=== PATIENT | male | born 1980 | race African-American/Black ===

== ENCOUNTER 2023-05-07 10:25 | Outpatient (REF) | payer MEDICAID, OTHER, SELFPAY ==
[2023-05-07 11:13] LABS: MANUAL DIFF FLAG NO
[2023-05-07 11:28] LABS: Basophils Percent Auto 0.4 % (0-2); Eosinophils Absolute Auto 0.1 X10*3/uL (0.0-0.4); Eosinophils Percent Auto 1.6 % (0-4); Hematocrit 42.2 % (42.0-52.0); Imm Gran Abs Auto 0.01 X10*3/uL (0.00-0.03); Imm Gran Pct Auto 0.2 % (0.0-0.4); Lymphocytes Absolute Auto 1.5 X10*3/uL (1.2-4.9); Lymphocytes Percent Auto 26.7 % (20-40); Mean Corpuscular HGB Conc 33.2 g/dl (31.0-36.0); Mean Corpuscular Hemoglobin 28.9 pg (27.0-33.0); Mean Corpuscular Volume 87.2 fL (80.0-98.0); Mean Platelet Volume 10.2 fL (9.4-12.4); Monocytes Absolute Auto 0.5 X10*3/uL (0.1-1.2); Monocytes Percent Auto 8.5 % (2-11); Neutrophils Absolute Auto 3.5 x10*3/uL (2.0-8.3); Neutrophils Percent Auto 62.6 % (45-73); Platelet Count 248 X10*3/uL (160-400); Red Blood Count 4.84 X10*6/uL (4.60-5.80); Red Cell Distribution Width 12.6 % (11.0-16.0); White Blood Count 5.6 X10*3/uL (4.8-10.8)
[2023-05-07 12:18] LABS: Alanine Aminotransferase 30 U/L (0-40); Albumin Level 4.1 g/dL (3.5-5.0); Alkaline Phosphatase 56 U/L (39-117); Anion Gap 10 (12-20); Aspartate Amino Transferase 27 U/L (5-37); Bilirubin Total 0.5 mg/dL (0.0-1.0); Blood Urea Nitrogen 8 mg/dL (9-16); Calcium 9.4 mg/dL (8.4-10.2); Carbon Dioxide 28 mmol/L (22-29); Chloride 103 mmol/L (96-108); Cholesterol 185 mg/dL (<200); Estimated Glomerular Filt Rate > 60; Glucose Random 88 mg/dL (60-115); HDL Cholesterol 59 mg/dL (>40); LDL Cholesterol Calculated 110 mg/dL (<100); Potassium 4.1 mmol/L (3.3-5.1); Sodium 137 mmol/L (135-145); Total Protein 7.2 g/dL (6.5-8.0); Triglycerides 80 mg/dL (<150)
[2023-05-07 12:32] LABS: TSH reflex Free T4 1.19 uIU/mL (0.32-4.0)
== END 2023-05-07 10:26 | disposition home or self-care (01) ==
LOC: HO.HHCL 10:25
PROVIDERS: Visit Provider Internal Medicine Geriatric Medicine
DX: Z13.220 Encounter for screening for lipoid disorders (principal); E03.9 Hypothyroidism, unspecified; I10 Essential (primary) hypertension; K62.5 Hemorrhage of anus and rectum
CPT/HCPCS: 36415; 80053; 80061; 84443; 85025

== ENCOUNTER 2023-08-19 08:02 | Outpatient (REF) | payer OTHER, SELFPAY ==
[2023-08-19 12:03] LABS: Anion Gap 12 (12-20); Blood Urea Nitrogen 16 mg/dL (9-16); Calcium 8.9 mg/dL (8.4-10.2); Carbon Dioxide 25 mmol/L (22-29); Chloride 108 mmol/L (96-108); Estimated Glomerular Filt Rate > 60; Glucose Random 94 mg/dL (60-115); Potassium 4.1 mmol/L (3.3-5.1); Sodium 141 mmol/L (135-145)
== END 2023-08-19 08:03 | disposition home or self-care (01) ==
LOC: HO.HHCL 08:02
PROVIDERS: Visit Provider Internal Medicine Geriatric Medicine
DX: I10 Essential (primary) hypertension (principal)
CPT/HCPCS: 36415; 80048

== ENCOUNTER 2023-11-13 13:28 | Outpatient (REF) | payer OTHER, SELFPAY ==
[2023-11-13 16:26] LABS: Anion Gap 11 (12-20); Blood Urea Nitrogen 13 mg/dL (9-16); Carbon Dioxide 27 mmol/L (22-29); Chloride 104 mmol/L (96-108); Estimated Glomerular Filt Rate > 60; Glucose Random 80 mg/dL (60-115); Potassium 3.9 mmol/L (3.3-5.1); Sodium 138 mmol/L (135-145)
[2023-11-14 04:02] LABS: HBc Num1 2.67 S/CO (0.00-0.79); ~Hepatitis B Surface Antibody REACTIVE (Nonreactive)
[2023-11-14 05:01] LABS: HBc Num2 2.51 S/CO; HBc Num3 2.54 S/CO; Hepatitis B Core Antibody Reactive (Nonreactive)
== END 2023-11-13 13:29 | disposition home or self-care (01) ==
LOC: HO.HHCL 13:28
PROVIDERS: Visit Provider Internal Medicine Geriatric Medicine
DX: I10 Essential (primary) hypertension (principal)
CPT/HCPCS: 36415; 80048; 86704; 86706

== ENCOUNTER 2023-11-18 11:55 | Outpatient (REF) | payer OTHER, SELFPAY ==
[2023-11-18 14:08] LABS: TSH reflex Free T4 1.39 uIU/mL (0.32-4.0)
[2023-11-19 08:01] LABS: HBsAGNum1 0.36 S/CO (0.00-0.99); Hepatitis B Surface Antigen Negative (Negative)
== END 2023-11-18 11:56 | disposition home or self-care (01) ==
LOC: HO.HHCL 11:55
PROVIDERS: Visit Provider Internal Medicine Geriatric Medicine
DX: R76.8 Other specified abnormal immunological findings in serum (principal); E03.9 Hypothyroidism, unspecified
CPT/HCPCS: 36415; 84443; 87340

== ENCOUNTER 2024-03-29 09:52 | Outpatient (REF) | payer OTHER, SELFPAY ==
[2024-03-29 11:27] LABS: MANUAL DIFF FLAG NO
[2024-03-29 12:08] LABS: Anion Gap 9 (12-20); Blood Urea Nitrogen 8 mg/dL (9-16); Calcium 9.4 mg/dL (8.4-10.2); Carbon Dioxide 28 mmol/L (22-29); Chloride 104 mmol/L (96-108); Estimated Glomerular Filt Rate > 60; Glucose Random 100 mg/dL (60-115); Iron 20 mcg/dL (45-160); Percent Iron Saturation 5 % (15-50); Potassium 4.1 mmol/L (3.3-5.1); Sodium 137 mmol/L (135-145); Total Iron Binding Capacity 386 mcg/dL (228-428); Unsaturated Iron Binding 366 ug/dL
[2024-03-29 12:09] LABS: Basophils Percent Auto 0.6 % (0-2); Eosinophils Absolute Auto 0.1 X10*3/uL (0.0-0.4); Eosinophils Percent Auto 1.4 % (0-4); Hematocrit 30.4 % (42.0-52.0); Imm Gran Abs Auto 0.02 X10*3/uL (0.00-0.03); Imm Gran Pct Auto 0.4 % (0.0-0.4); Lymphocytes Absolute Auto 1.2 X10*3/uL (1.2-4.9); Lymphocytes Percent Auto 23.9 % (20-40); Mean Corpuscular HGB Conc 32.6 g/dl (31.0-36.0); Mean Corpuscular Hemoglobin 26.8 pg (27.0-33.0); Mean Corpuscular Volume 82.4 fL (80.0-98.0); Mean Platelet Volume 10.1 fL (9.4-12.4); Monocytes Absolute Auto 0.5 X10*3/uL (0.1-1.2); Monocytes Percent Auto 8.9 % (2-11); Neutrophils Absolute Auto 3.3 x10*3/uL (2.0-8.3); Neutrophils Percent Auto 64.8 % (45-73); Platelet Count 307 X10*3/uL (160-400); Red Blood Count 3.69 X10*6/uL (4.60-5.80); Red Cell Distribution Width 13.5 % (11.0-16.0); White Blood Count 5.1 X10*3/uL (4.8-10.8)
[2024-03-29 12:13] LABS: Hemoglobin 9.9 g/dl (14.0-18.0)
[2024-03-29 12:17] LABS: Ferritin 6 ng/mL (20-250)
== END 2024-03-29 09:53 | disposition home or self-care (01) ==
LOC: HO.HHCL 09:52
PROVIDERS: Visit Provider Internal Medicine Geriatric Medicine
DX: I10 Essential (primary) hypertension (principal); D50.8 Other iron deficiency anemias; R79.89 Other specified abnormal findings of blood chemistry
CPT/HCPCS: 36415; 80048; 82728; 83540; 85025

== ENCOUNTER 2024-05-10 10:23 | Outpatient (REF) | payer OTHER, SELFPAY ==
[2024-05-10 11:13] LABS: MANUAL DIFF FLAG NO
[2024-05-10 11:16] LABS: Basophils Percent Auto 0.6 % (0-2); Eosinophils Absolute Auto 0.1 X10*3/uL (0.0-0.4); Eosinophils Percent Auto 1.2 % (0-4); Hematocrit 31.1 % (42.0-52.0); Hemoglobin 9.6 g/dl (14.0-18.0); Imm Gran Abs Auto 0.01 X10*3/uL (0.00-0.03); Imm Gran Pct Auto 0.2 % (0.0-0.4); Lymphocytes Absolute Auto 1.4 X10*3/uL (1.2-4.9); Mean Corpuscular HGB Conc 30.9 g/dl (31.0-36.0); Mean Corpuscular Hemoglobin 24.2 pg (27.0-33.0); Mean Corpuscular Volume 78.5 fL (80.0-98.0); Mean Platelet Volume 10.4 fL (9.4-12.4); Monocytes Absolute Auto 0.4 X10*3/uL (0.1-1.2); Monocytes Percent Auto 8.3 % (2-11); Neutrophils Absolute Auto 2.9 x10*3/uL (2.0-8.3); Neutrophils Percent Auto 60.7 % (45-73); Platelet Count 328 X10*3/uL (160-400); Red Blood Count 3.96 X10*6/uL (4.60-5.80); Red Cell Distribution Width 14.7 % (11.0-16.0); White Blood Count 4.8 X10*3/uL (4.8-10.8)
[2024-05-10 12:29] LABS: Ferritin 5 ng/mL (20-250); Iron 17 mcg/dL (45-160); Percent Iron Saturation 5 % (15-50); Total Iron Binding Capacity 370 mcg/dL (228-428); Unsaturated Iron Binding 353 ug/dL
== END 2024-05-10 10:24 | disposition home or self-care (01) ==
LOC: HO.HHCL 10:23
PROVIDERS: Visit Provider Internal Medicine Geriatric Medicine
DX: D50.8 Other iron deficiency anemias (principal)
CPT/HCPCS: 36415; 82728; 83540; 85025

== ENCOUNTER 2024-05-11 11:35 | Outpatient (REF) | payer OTHER, SELFPAY | END 2024-05-11 11:36 | disposition home or self-care (01) | LOC: HO.HHCLNP 11:35 | PROVIDERS: Visit Provider Internal Medicine Geriatric Medicine | DX: D50.8 Other iron deficiency anemias (principal) | CPT/HCPCS: 87338 ==

== ENCOUNTER 2024-06-03 14:22 | Outpatient (REF) | payer OTHER, SELFPAY ==
[2024-06-03 15:34] LABS: MANUAL DIFF FLAG NO
[2024-06-03 15:56] LABS: Basophils Percent Auto 0.5 % (0-2); Eosinophils Absolute Auto 0.1 X10*3/uL (0.0-0.4); Eosinophils Percent Auto 0.8 % (0-4); Hematocrit 34.5 % (42.0-52.0); Hemoglobin 10.6 g/dl (14.0-18.0); Imm Gran Abs Auto 0.02 X10*3/uL (0.00-0.03); Imm Gran Pct Auto 0.3 % (0.0-0.4); Lymphocytes Absolute Auto 1.5 X10*3/uL (1.2-4.9); Lymphocytes Percent Auto 23.2 % (20-40); Mean Corpuscular HGB Conc 30.7 g/dl (31.0-36.0); Mean Corpuscular Hemoglobin 23.9 pg (27.0-33.0); Mean Corpuscular Volume 77.7 fL (80.0-98.0); Mean Platelet Volume 9.9 fL (9.4-12.4); Monocytes Absolute Auto 0.6 X10*3/uL (0.1-1.2); Monocytes Percent Auto 8.8 % (2-11); Neutrophils Absolute Auto 4.3 x10*3/uL (2.0-8.3); Neutrophils Percent Auto 66.4 % (45-73); Platelet Count 329 X10*3/uL (160-400); Red Blood Count 4.44 X10*6/uL (4.60-5.80); Red Cell Distribution Width 16.1 % (11.0-16.0); White Blood Count 6.5 X10*3/uL (4.8-10.8)
[2024-06-03 18:18] LABS: Alanine Aminotransferase 28 U/L (0-40); Albumin Level 4.2 g/dL (3.5-5.0); Alkaline Phosphatase 65 U/L (39-117); Anion Gap 10 (12-20); Aspartate Amino Transferase 23 U/L (5-37); Bilirubin Total 0.3 mg/dL (0.0-1.0); Blood Urea Nitrogen 10 mg/dL (9-16); C Reactive Protein < 0.04 mg/dL (< or = 0.50); Calcium 8.5 mg/dL (8.4-10.2); Carbon Dioxide 28 mmol/L (22-29); Chloride 106 mmol/L (96-108); Estimated Glomerular Filt Rate > 60; Ferritin 8 ng/mL (20-250); Glucose Random 96 mg/dL (60-115); Potassium 3.5 mmol/L (3.3-5.1); Sodium 140 mmol/L (135-145); Total Protein 7.4 g/dL (6.5-8.0)
== END 2024-06-03 14:23 | disposition home or self-care (01) ==
LOC: HO.LAB 14:22
PROVIDERS: PCP Internal Medicine Geriatric Medicine; Visit Provider Nurse Practitioner
DX: Z01.818 Encounter for other preprocedural examination (principal); K62.5 Hemorrhage of anus and rectum; D64.9 Anemia, unspecified; K62.89 Other specified diseases of anus and rectum
CPT/HCPCS: 36415; 80053; 81405; 81479; 82397; 82728; 83520; 85025; 86140; 88346; 88350; 99202

== ENCOUNTER → 2024-06-03 14:22 | Outpatient (AMB) | payer OTHER, SELFPAY ==
[2024-06-03 14:28] VITALS: BP 138/80; PULSE 78; BMI 29.9
--- NOTE | 2024-06-03 14:28 | A.OFFVIS_ITS ---
Vital Signs 06/03/24 14:28 Height 5 ft 11 in Weight 214 lb 11.684 oz BMI 29.9 BP 138/80 Blood Pressure Location Lt brachial Position Sitting Pulse 78 Intake Visit Reasons: Colonoscopy Screening/ Rectal bleeding Intake Note: New patient in office today for rectal bleeding CC: Patient c/o rectal bleeding and anemia. Patient reports that he had a colonoscopy done in 04/21/24 in [facility]. 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 He is referred by. [facility]. PMX Obesity-BMI 32 Hypertension Hypothyroid ED anemia * SURGICAL HISTORY Subtotal thyoidectomy * ALLERGIES:NKDA * [employer] LABS: Laboratory Tests 03/29/24 05/10/24 10:05 10:31 WBC 4.8 RBC 3.96 L Hgb 9.6 L Hct 31.1 L MCV 78.5 L MCH 24.2 L MCHC 30.9 L Plt Count 328 Estimated GFR > 60 TODAY'S VISIT Apparently, he [place] that showed only grade 1 internal roids. HE presents us with the report in [place]. The EGD showed only mild antral gastritis with biopsy showing chronic proctitis. NO wt loss or diarrhea. He was treated with a hemorrhoid supp that helped a little bit but only while I was using it. I explain that I would like him to try melalmine supps for possible UC and that these are different from roid tx. He has been on oral iron therapy for about 6 weeks. He denies any rectral pain or abd pain. No FHX of crc, IBD or known chronic anemia. His CBC in 2022 was ok. ROV 4 weeks. [facility] Surgical History History of esophagogastroduodenoscopy (EGD) H/O thyroidectomy H/O colonoscopy Social History Alcohol intake: former Patient Tobacco Use Status: Never used Tobacco Review of Systems Const Reports fatigue, Denies fever(s), Denies night sweats, Denies poor appetite and Denies weight loss ENT Reports Normal hearing present, Denies dental pain, Denies dysphagia, Denies hearing loss, Denies mouth pain, Denies odynophagia, Denies throat swelling, Denies tongue swelling and Reports other (Dentition adequate) Card Reports no additional complaints and Reports dyspnea on exertion (resolved with iron therapy) Resp Reports dyspnea on exertion (resolved with iron therapy) GI Details: Denies abdominal pain, Denies melena, Denies bloating, Reports hematochezia, Denies constipation, Denies GI cramping, Denies dysphagia, Denies excessive flatus, Denies early satiety, Denies heartburn, Denies diarrhea, Denies nausea, Denies odynophagia, Denies vomiting and Denies hematemesis Skin/Breast Denies pruritus, Denies lesions, Denies rash and Denies jaundice Neuro Reports Normal hearing present and Denies Abnormal speech present Endo Reports fatigue Aller/Immun Denies throat swelling and Denies tongue swelling Physical Exam Vital Signs: Last Vital Signs Pulse 78 06/03/24 14:28 BP 138/80 06/03/24 14:28 BMI result Body Mass Index 29.9 Const General: cooperative, no acute distress, well developed and well groomed Nutritional Appearance: well nourished and overweight Orientation/consciousness: oriented to person, oriented to place and oriented to time Limitations: No language barrier HEENT Head: Yes normocephalic and Yes atraumatic Eyes General: appearance normal, both eyes and all related structures Pupils: Equal, round and reactive pupils present Neck Neck: Yes normal visual inspection and Yes no lymphadenopathy Thyroid: Thyroid normal Resp Effort & Inspection: normal respiratory effort and able to speak in complete sentences Auscultation: clear to auscultation bilaterally Cardio Rate: regular rate Rhythm: regular rhythm Heart sounds: Normal, physiologic split S2 sound present Peripheral pulses: radial pulses present and posterior tibial pulses present GI Inspection: No distended, No Abdominal panniculus present and Yes obesity Palpation (GI): Soft to palpation, nontender, no guarding, not rigid and No hepatosplenomegaly present Percussion: Yes normal to percussion Auscultation: normal bowel sounds Rectal Exam - Male: Yes deferred Skin General skin exam: no rashes or lesions noted, turgor normal, skin not dry, no jaundice, No spider nevi and no striae Rashes: no rashes Nails: normal Neuro General: oriented to person, oriented to place and oriented to time Cranial nerves: Yes Equal, round and reactive pupils present and Yes Normal hearing present Speech: No Abnormal speech present Extrem General: Yes normal to inspection, No clubbing, No cyanosis and No edema Psych Appearance: grossly normal and well kempt Mental Status: mental status grossly normal Speech and movement: Normal speech and movement present Affect: normal affect Attitude: cooperative Thought process: Normal thought process present and not confabulating Thought content: Normal thought content present Insight: Fair insight present (Psych) and Limited insight present (Psych) Judgement: Fair judgement present (Psych) and Limited judgement present (Psych) Assessment & Plan Assessment & Plan (1) Pre-op examination: Code(s): Z01.818 - Encounter for other preprocedural examination Category: Medical (2) Rectal bleeding: Code(s): K62.5 - Hemorrhage of anus and rectum Category: Medical (3) Anemia: Code(s): D64.9 - Anemia, unspecified Category: Medical (4) Proctitis: Code(s): K62.89 - Other specified diseases of anus and rectum Category: Medical Plan Apparently, he [place] that showed only grade 1 internal roids. HE presents us with the report in [place]. The EGD showed only mild antral gastritis with biopsy showing chronic proctitis. NO wt loss or diarrhea. He was treated with a hemorrhoid supp that helped a little bit but only while I was using it. I explain that I would like him to try melalmine supps for possible UC and that these are different from roid tx. He has been on oral iron therapy for about 6 weeks. He denies any rectal pain or abd pain. No FHX of crc, IBD or known chronic anemia. His CBC in 2022 was ok. ROV 4 weeks. Orders: Orders Comprehensive Met. Panel Today D64.9 - Anemia, unspecified, K62.5 - Hemorrhage of anus and rectum, Z01.818 - Encounter for other preprocedural examination Ferritin Today D64.9 - Anemia, unspecified, K62.5 - Hemorrhage of anus and rectum, Z01.818 - Encounter for other preprocedural examination EGD/Bivalve Combo - GI Use Only Today D64.9 - Anemia, unspecified, K62.5 - Hemorrhage of anus and rectum, Z01.818 - Encounter for other preprocedural examination Prometheus IBD SGI Today K62.89 - Other specified diseases of anus and rectum Capsule Endoscopy -GI Use Only Today D64.9 - Anemia, unspecified Complete Blood Count Auto Diff Today D64.9 - Anemia, unspecified, K62.5 - Hemorrhage of anus and rectum, [id number] - Encounter for other preprocedural examination Calprotectin, Fecal Today K62.89 - Other specified diseases of anus and rectum C Reactive Protein Today K62.89 - Other specified diseases of anus and rectum Medications: New peg 3350-electrolytes 236-22.74-6.74 -5.86 gram (Golytely) until fecal effluent is clear; do not exceed a total volume of 2,000 mL 240 mL PO Q10M 4,000 mL 0RF 1 day Z12.11 - Encounter for screening for malignant neoplasm of colon bisacodyl (Dulcolax (bisacodyl)) 10 mg (2 x 5 mg) PO BEDTIME 4 tabs 0RF 2 days mesalamine 1 g ID BEDTIME 30 ea 3RF K62.89 - Other specified diseases of anus and rectum Coding Level of Care Code New Pt Level 3 (25476) Diagnoses Pre-op examination Z81 Rectal bleeding K62.5 Anemia D64.9 Proctitis K62.89
== END ==
PROVIDERS: PCP Internal Medicine Geriatric Medicine; Visit Provider Nurse Practitioner
DX: K62.5 Hemorrhage of anus and rectum (principal); D64.9 Anemia, unspecified; K62.89 Other specified diseases of anus and rectum; Z12.11 Encounter for screening for malignant neoplasm of colon
CPT/HCPCS: 99203

== ENCOUNTER 2024-06-04 10:45 | Outpatient (REF) | payer OTHER, SELFPAY ==
[2024-06-11 21:12] LABS: Calprotectin, Fecal 7 mcg/g
== END 2024-06-04 10:46 | disposition home or self-care (01) ==
LOC: HO.LNP 10:45
PROVIDERS: Visit Provider Nurse Practitioner
DX: K62.89 Other specified diseases of anus and rectum (principal)
CPT/HCPCS: 83993

== ENCOUNTER 2024-06-22 07:45 | Outpatient (AMB) | payer OTHER, SELFPAY ==
--- NOTE | 2024-06-29 21:30 | A.OFFVIS_ITS ---
Intake Visit Reasons: Video Capsule Endoscopy Allergies No Known Allergies Allergy (Verified 06/03/24 14:42) [facility] Surgical History History of esophagogastroduodenoscopy (EGD) H/O thyroidectomy H/O colonoscopy Social History Alcohol intake: former Patient Tobacco Use Status: Never used Tobacco Office Procedures AMB Capsule Endoscopy Procedure Notes: Capsule Endoscopy: Date of Service:06/22/24 Indication: anemia Findings: esophagus normal. Moderate severe erosive gastritis noted with patchy erythema. Duodenum entered at 58 min. Small bowel appeared normal. cecum entered at 2 hr 42 and colonic mucosa normal with one diverticulum seen Conclusion: erosive gastritis consider checking h pylori and nsaid history Capsule Endoscopy CPT Code: 41766 - Capsule Endoscopy Assessment & Plan Assessment & Plan (1) Anemia: Code(s): D64.9 - Anemia, unspecified Category: Medical Qualifiers: Anemia type: other cause Plan: see report Coding Level of Care Code Procedure Only Diagnoses Anemia D64.9 Anemia type: other cause CPT Codes AMB Capsule Endoscopy - Capsule Endoscopy CPT Code: 41948 - Capsule Endoscopy ([id number])
== END 2024-06-22 08:01 | disposition home or self-care (01) ==
PROVIDERS: PCP Internal Medicine Geriatric Medicine; Visit Provider Internal Medicine Gastroenterology
DX: D64.9 Anemia, unspecified (principal); K29.70 Gastritis, unspecified, without bleeding
CPT/HCPCS: 91110

== ENCOUNTER → 2024-06-22 07:45 | Outpatient (BNVA) | payer OTHER, SELFPAY | PROVIDERS: PCP Internal Medicine Geriatric Medicine; Visit Provider Internal Medicine Gastroenterology | DX: D64.9 Anemia, unspecified (principal) | CPT/HCPCS: 91110 ==

== ENCOUNTER 2024-07-12 16:11 | Outpatient (AMB) | payer OTHER, SELFPAY ==
[2024-07-12 16:15] VITALS: BP 144/81; PULSE 68; BMI 30.5
--- NOTE | 2024-07-12 16:15 | A.OFFVIS_ITS ---
Vital Signs 07/12/24 16:15 Height 5 ft 11 in Weight 218 lb 11.177 oz BMI 30.5 BP 144/81 H Blood Pressure Location Lt brachial Position Sitting Pulse 68 Intake Visit Reasons: F/u labs and capsule endoscopy Intake Note: Dashawn presents in office follow up of labs and capsule endoscopy. CC: Patient reports epigastric discomfort sometimes. Denies other GI concerns today. Per patient he had his hemoglobin checked in [facility] around 07/02 was on 11.7. 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 Accompanied by: Self / Same As Patient Allergies No Known Allergies Allergy (Verified 07/12/24 16:19) HPI HPI F/u labs and capsule endoscopy: Details: Assessment & Plan (1) Pre-op examination: Code(s): Z01.818 - Encounter for other preprocedural examination Category: Medical (2) Rectal bleeding: Code(s): K62.5 - Hemorrhage of anus and rectum Category: Medical (3) Anemia: Code(s): D64.9 - Anemia, unspecified Category: Medical (4) Proctitis: Code(s): K62.89 - Other specified diseases of anus and rectum Category: Medical Plan Apparently, he [place] that showed only grade 1 internal roids. HE presents us with the report in [place]. The EGD showed only mild antral gastritis with biopsy showing chronic proctitis. NO wt loss or diarrhea. He was treated with a hemorrhoid supp that helped a little bit but only while I was using it. I explain that I would like him to try melalmine supps for possible UC and that these are different from roid tx. He has been on oral iron therapy for about 6 weeks. He denies any rectal pain or abd pain. No FHX of crc, IBD or known chronic anemia. His CBC in 2022 was ok. ROV 4 weeks. Orders: Orders Comprehensive Met. Panel Today D64.9 - Anemia, unspecified, K62.5 - Hemorrhage of anus and rectum, Z01.818 - Encounter for other preprocedural examination Ferritin Today D64.9 - Anemia, unspecified, K62.5 - Hemorrhage of anus and rectum, Z01.818 - Encounter for other preprocedural examination EGD/[place] Combo - GI Use Only Today D64.9 - Anemia, unspecified, K62.5 - Hemorrhage of anus and rectum, Z01.818 - Encounter for other preprocedural examination Prometheus IBD SGI Today K62.89 - Other specified diseases of anus and rectum Capsule Endoscopy -GI Use Only Today D64.9 - Anemia, unspecified Complete Blood Count Auto Diff Today D64.9 - Anemia, unspecified, K62.5 - Hemorrhage of anus and rectum, Z01.818 - Encounter for other preprocedural examination Calprotectin, Fecal Today K62.89 - Other specified diseases of anus and rectum C Reactive Protein Today K62.89 - Other specified diseases of anus and rectum Medications: New peg 3350-electrolytes 236-22.74-6.74 -5.86 gram (Golytely) until fecal effluent is clear; do not exceed a total volume of 2,000 mL 240 mL PO Q10M 4,000 mL 0RF 1 day Z12.11 - Encounter for screening for malignant neoplasm of colon bisacodyl (Dulcolax (bisacodyl)) 10 mg (2 x 5 mg) PO BEDTIME 4 tabs 0RF 2 days mesalamine 1 g [place] BEDTIME 30 ea 3RF K62.89 - Other specified diseases of anus and rectum LABS: Laboratory Tests 06/03/24 06/04/24 15:32 08:30 Estimated GFR > 60 Ferritin 8 L Total Bilirubin 0.3 AST 23 ALT 28 Alkaline Phosphatase 65 C-Reactive Protein < 0.04 Stool Calprotectin 7 Laboratory Tests 06/03/24 15:32 WBC 6.5 Hgb 10.6 L Hct 34.5 L MCV 77.7 L MCH 23.9 L Plt Count 329 PROMETHEUS lab NOT c/w IBD WIRELESS CAPSULE ENDOSCOPY Shows evidence of erosive gastritis EGD/COLONOSCOPY Performed in the [place] and patient declines further examined this situation BIOPSY TODAY'S VISIT He says that the bleeding has mostly stopped, he only has occasional pink on the TT. However, the WCE seemed to indicate that he has erosive gastritis, and not just mild gastritis as [place]. I discussed possible surgical referral for bleeding roids, since he does not have IBD. He declines. I will start him on omeprazole which can be followed and prescribed by Dr Huang going forward. prn [facility] Medical History (Updated 07/12/24 @ 16:53 by KOSTA Pulliam) Rectal bleeding Surgical History History of esophagogastroduodenoscopy (EGD) H/O thyroidectomy H/O colonoscopy Social History Alcohol intake: former Patient Tobacco Use Status: Never used Tobacco Review of Systems Const Denies fatigue, Denies fever(s), Denies night sweats, Denies poor appetite and Denies weight loss ENT Reports Normal hearing present, Denies dental pain, Denies dysphagia, Denies hearing loss, Denies mouth pain, Denies odynophagia, Denies throat swelling, Denies tongue swelling and Reports other (Dentition adequate) Card Reports no additional complaints Resp Reports no additional complaints GI Details: Reports abdominal pain, Denies melena, Denies bloating, Denies hematochezia, Denies constipation, Denies GI cramping, Denies dysphagia, Denies excessive flatus, Denies early satiety, Denies heartburn, Denies diarrhea, Denies nausea, Denies odynophagia, Denies vomiting and Denies hematemesis Skin/Breast Denies pruritus, Denies lesions, Denies rash and Denies jaundice Neuro Reports Normal hearing present and Denies Abnormal speech present Endo Denies fatigue Aller/Immun Denies throat swelling and Denies tongue swelling Physical Exam Vital Signs: Last Vital Signs Pulse 68 07/12/24 16:15 BP 144/81 H 07/12/24 16:15 BMI result Body Mass Index 30.5 Const General: cooperative, no acute distress, well developed and well groomed Nutritional Appearance: well nourished and obese Orientation/consciousness: oriented to person, oriented to place and oriented to time Limitations: language barrier HEENT Head: Yes normocephalic and Yes atraumatic Eyes General: appearance normal, both eyes and all related structures Pupils: Equal, round and reactive pupils present Neck Neck: Yes normal visual inspection and Yes no lymphadenopathy Thyroid: Thyroid normal Resp Effort & Inspection: normal respiratory effort and able to speak in complete sentences Auscultation: clear to auscultation bilaterally Cardio Rate: regular rate Rhythm: regular rhythm Heart sounds: Normal, physiologic split S2 sound present Peripheral pulses: radial pulses present and posterior tibial pulses present GI Inspection: No distended, No Abdominal panniculus present and Yes obesity Palpation (GI): Soft to palpation, nontender, no guarding, not rigid and No hepatosplenomegaly present Percussion: Yes normal to percussion Auscultation: normal bowel sounds Rectal Exam - Male: Yes deferred Skin General skin exam: no rashes or lesions noted, turgor normal, skin not dry, no jaundice, No spider nevi and no striae Rashes: no rashes Nails: normal Neuro General: oriented to person, oriented to place and oriented to time Cranial nerves: Yes Equal, round and reactive pupils present and Yes Normal hearing present Speech: No Abnormal speech present Extrem General: Yes normal to inspection, No clubbing, No cyanosis and No edema Psych Appearance: grossly normal and well kempt Mental Status: mental status grossly normal Speech and movement: Normal speech and movement present Affect: normal affect Attitude: cooperative Thought process: Normal thought process present and not confabulating Thought content: Normal thought content present Insight: Limited insight present (Psych) Judgement: Limited judgement present (Psych) Results Reviewed Results Reviewed: Laboratory Tests 06/03/24 06/04/24 15:32 08:30 Estimated GFR > 60 Ferritin 8 L Total Bilirubin 0.3 AST 23 ALT 28 Alkaline Phosphatase 65 C-Reactive Protein < 0.04 Stool Calprotectin 7 Laboratory Tests 06/03/24 15:32 WBC 6.5 Hgb 10.6 L Hct 34.5 L MCV 77.7 L MCH 23.9 L Plt Count 329 PROMETHEUS lab NOT c/w IBD WIRELESS CAPSULE ENDOSCOPY Shows evidence of erosive gastritis EGD/COLONOSCOPY Performed in the [place] and patient declines further examined this situation Assessment & Plan Assessment & Plan (1) Proctitis: Code(s): K62.89 - Other specified diseases of anus and rectum Category: Medical (2) Anemia: Code(s): D64.9 - Anemia, unspecified Category: Medical Qualifiers: Anemia type: other cause (3) Erosive gastritis: Code(s): K29.60 - Other gastritis without bleeding Category: Medical Plan He says that the bleeding has mostly stopped, he only has occasional pink on the TT. However, the WCE seemed to indicate that he has erosive gastritis, and not just mild gastritis as [place]. I discussed possible surgical referral for bleeding roids, since he does not have IBD. He declines. I will start him on omeprazole which can be followed and prescribed by Dr Huang going forward. prn Medications: New omeprazole 40 mg PO DAILY 30 caps 1RF 30 days K29.60 - Other gastritis without bleeding Discontinued polyethylene glycol 3350 Discontinued Reason: Patient Completed Course 17 grams PO ONCE 238 grams 0RF simethicone Discontinued Reason: Doctor's Order 250 mg (2 x 125 mg) PO ONCE PRN 2 caps 0RF abdominal distention mesalamine Discontinued Reason: Doctor's Order 1 g [place] BEDTIME 30 ea 3RF K62.89 - Other specified diseases of anus and rectum Coding Level of Care Code Est Pt Level 3 (55416) Diagnoses Proctitis K62.89 Anemia D64.9 Anemia type: other cause Erosive gastritis K29.60
== END 2024-07-12 16:56 | disposition home or self-care (01) ==
PROVIDERS: PCP Internal Medicine Geriatric Medicine; Visit Provider Nurse Practitioner
DX: K62.89 Other specified diseases of anus and rectum (principal); D64.9 Anemia, unspecified; K29.60 Other gastritis without bleeding
CPT/HCPCS: 99213

== ENCOUNTER → 2024-07-12 16:11 | Outpatient (BNVA) | payer OTHER, SELFPAY | PROVIDERS: PCP Internal Medicine Geriatric Medicine; Visit Provider Nurse Practitioner | DX: K62.89 Other specified diseases of anus and rectum (principal); K29.60 Other gastritis without bleeding; D64.9 Anemia, unspecified | CPT/HCPCS: 99212 ==

== ENCOUNTER 2024-08-02 10:49 | Outpatient (REF) | payer OTHER, SELFPAY ==
[2024-08-02 14:28] LABS: MANUAL DIFF FLAG NO
[2024-08-02 14:34] LABS: Basophils Percent Auto 0.5 % (0-2); Eosinophils Absolute Auto 0.1 X10*3/uL (0.0-0.4); Eosinophils Percent Auto 1.3 % (0-4); Hematocrit 33.5 % (42.0-52.0); Hemoglobin 10.3 g/dl (14.0-18.0); Imm Gran Abs Auto 0.01 X10*3/uL (0.00-0.03); Imm Gran Pct Auto 0.2 % (0.0-0.4); Lymphocytes Absolute Auto 1.6 X10*3/uL (1.2-4.9); Lymphocytes Percent Auto 28.2 % (20-40); Mean Corpuscular HGB Conc 30.7 g/dl (31.0-36.0); Mean Corpuscular Hemoglobin 23.7 pg (27.0-33.0); Mean Platelet Volume 10.6 fL (9.4-12.4); Monocytes Absolute Auto 0.5 X10*3/uL (0.1-1.2); Monocytes Percent Auto 9.4 % (2-11); Neutrophils Absolute Auto 3.4 x10*3/uL (2.0-8.3); Neutrophils Percent Auto 60.4 % (45-73); Platelet Count 280 X10*3/uL (160-400); Red Blood Count 4.35 X10*6/uL (4.60-5.80); Red Cell Distribution Width 17.5 % (11.0-16.0); White Blood Count 5.5 X10*3/uL (4.8-10.8)
[2024-08-02 15:22] LABS: Iron 24 mcg/dL (45-160); Percent Iron Saturation 6 % (15-50); Total Iron Binding Capacity 397 mcg/dL (228-428); Unsaturated Iron Binding 373 ug/dL
[2024-08-02 15:24] LABS: Ferritin 6 ng/mL (20-250); TSH reflex Free T4 1.06 uIU/mL (0.32-4.0)
== END 2024-08-02 10:50 | disposition home or self-care (01) ==
LOC: HO.HHCL 10:49
PROVIDERS: Visit Provider Internal Medicine Geriatric Medicine
DX: E03.9 Hypothyroidism, unspecified (principal); D50.8 Other iron deficiency anemias
CPT/HCPCS: 36415; 82728; 83540; 84443; 85025

== ENCOUNTER 2024-12-01 09:20 | Outpatient (REF) | payer OTHER, SELFPAY ==
--- OUTSIDE RECORDS SUMMARY | 2024-12-01 09:52 | XMS_ITS | Encounter Summary ---
Author Organization [employer] Address [address] [facility] 7t [place] [address] Care Team Providers Care Crystal Flat Grinder Name Role Phone Name, Shai GOMEZ Primary Care Provider [phone] Thalia Boland PharmD Unavailable [phone] Reason for Visit * Reason Comments Follow-up Encounter Details Date Type Department Care Team ([facility] st Contact Info) Description 12/01/2024 9:00 AM EDT Office Visit [facility] [address] [place] [address] Name, MD Shai [address] [place] [address] Internal hemorrhoid, bleeding (Primary Dx); Other iron deficiency anemia; Acquired hypothyroidism; Hypertension, unspecified type Social History Tobacco Use Types Packs/Day Years Used Date Smoking Tobacco: Never Smokeless Tobacco: Never Tobacco Cessation:Counseling Given: Not Answered Alcohol Use Standard Drinks/Week Comments Yes 0 (1 standard drink = 0.6 oz pur e alcohol) social Depression Answer Date Recorded Patient Health Questionnaire-9 Score 0 05/07/2023 Housing Stability Answer Date Recorded What is your housing situation today? I have edin rodriguez 06/29/[address] you li ve. Do you have problems with any of the following? None of the above 06/29/2023 Food Insecurity Answer Date Recorded Within the past 12 months, y ou worried that your food would run out before you got money to buy more: Never True 06/29/2023 Within the past 12 months,th e food you bought just didn't last and you didn't have enough money to get more: Never True Transportation Answer Date Recorded In the past 12 months, has l ack of transportation kept you from medical appts, meetings, work or from getting things needed for daily living? No 06/29/2023 Utilities Answer Date Recorded In the past 12 months, has t he electric, gas, oil or water company threatened to shut off services in your home? No 06/29/2023 Depression Answer Date Recorded Patient Health Questionnaire-2 Score 0 05/07/2023 Internet Access Answer Date Recorded Internet Access Q1 Yes 04/30/2024 Internet Access Q2 Not on file 04/30/2024 Sex and Gender Information Value Date Recorded Sex Assigned at Male 06/30/2022 10:31 AM EDT Legal Sex Male 10:31 AM EDT Gender Identity Male 06/30/2022 10:31 AM EDT Sexual Orientation Straight 06/30/2022 10 :31 AM EDT documented as of this encounter Last Filed Vital Signs Vital Sign Reading Time Taken Comments Blood Pressure 136/81 12/01/2024 8:59 AM EDT Pulse 64 12/01/2024 8:59 AM EDT Temperature 36.9 ??C (98.4 ??F) 12/01/2024 8:59 AM ED T Respiratory Rate 21 12/01/2024 8:59 AM EDT Oxygen Saturation 96% 12/01/2024 8:59 AM EDT Inhaled Oxygen Concentration - - Weight 104 kg (229 lb 9.6 oz) 12/01/2024 8:59 AM EDT Height 180.3 cm (5' 11 ) 12/01/2024 8:59 AM EDT Body Mass Index 32.02 12/01/2024 8:59 AM EDT documented in this encounter Progress Notes * Shai Huang, - 12/01/2024 9:00 AM EDT Subjective Patient ID: Dashawn Branch is a 44 y.o. male who presents for Follow-up. Patient comes for a follow-up visit and is feeling well. No episodes of rectal bleeding. He is using his levothyroxine as prescribed. He denies any symptoms to suggest hyper or hypo thyroidism. The patient is still using his iron supplementation. 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 No chest pains or shortness of breath. Review of Systems Constitutional: Negative for chills, fatigue and fever. HENT: Negative for sore throat. Respiratory: Negative for cough, chest tightness and shortness of breath. Cardiovascular: Negative for chest pain, palpitations and leg swelling. Gastrointestinal: Negative for abdominal pain and blood in stool. Visit Vitals BP 136/81 (BP Location: Left arm, Patient Position: Sitting, BP Cuff Size: Large adult) Pulse 64 Temp 98.4 ??F (36.9 ??C) (Temporal) Resp 21 Ht 5' 11 (1.803 m) Wt 229 lb 9.6 oz (104 kg) SpO2 96% BMI 32.02 kg/m?? Smoking Status Never BSA 2.28 m?? Objective Physical Exam Constitutional: Appearance: Normal appearance. Cardiovascular: Rate and Rhythm: Normal rate and regular rhythm. Heart sounds: No murmur heard. Pulmonary: Effort: Pulmonary effort is normal. No respiratory distress. Breath sounds: No wheezing, rhonchi or rales. Abdominal: Palpations: Abdomen is soft. Tenderness: There is no abdominal tenderness. Musculoskeletal: Right lower leg: No edema. Left lower leg: No edema. Neurological: Mental Status: He is alert. Assessment/Plan Diagnoses and all orders for this visit: Internal hemorrhoid, bleeding Comments: He denies any recurrent episodes of rectal bleeding. I will recheck his CBC, iron studies and ferritin. Further recommendation based on the results. Orders: - CBC auto differential; Future - Comprehensive Metabolic Panel; Future - Lipid Panel, Standard; Future - Iron And Total Iron Binding Capacity; Future - Ferritin; Future - TSH W/Reflex to FT4; Future Other iron deficiency anemia Comments: See above Orders: - CBC auto differential; Future - Comprehensive Metabolic Panel; Future - Lipid Panel, Standard; Future - Iron And Total Iron Binding Capacity; Future - Ferritin; Future - TSH W/Reflex to FT4; Future Acquired hypothyroidism Comments: Continue levothyroxine and recheck TSH. Orders: - CBC auto differential; Future - Comprehensive Metabolic Panel; Future - Lipid Panel, Standard; Future - Iron And Total Iron Binding Capacity; Future - Ferritin; Future - TSH W/Reflex to FT4; Future Hypertension, unspecified type Comments: BP is well-controlled on current dose of losartan and amlodipine. I recommend to recheck CMP and fasting lipids. The patient is tolerating the medications well. He denies any significant constipationon his current dose of amlodipine. He complains of occasional mild bilateral feet edema but is not enough for him to want to switch to a different antihypertensive. Orders: - CBC auto differential; Future - Comprehensive Metabolic Panel; Future - Lipid Panel, Standard; Future - Iron And Total Iron Binding Capacity; Future - Ferritin; Future - TSH W/Reflex to FT4; Future documented in this encounter Plan of Treatment Scheduled Orders Name Type Priority Associated Diagnoses Orde r Schedule CBC auto differential Lab Routine Internal hemorrhoid, bleeding Other iron deficiency anemia Acquired hypothyroidism Hypertension, unspecified type Expected: 12/01/2024 (Approximate), Expires: 12/01/2025 Comprehensive Metabolic Panel Lab Routine Internal hemorrhoid, bleeding Other iron deficiency anemia Acquired hypothyroidism Hypertension, unspecified type Expected: 12/01/2024 (Approximate), Expires: 12/01/2025 Lipid Panel, Standard Lab Routine Internal hemorrhoid, bleeding Other iron deficiency anemia Acquired hypothyroidism Hypertension, unspecified type Expected: 12/01/2024 (Approximate), Expires: 12/01/2025 Iron And Total Iron Binding Capacity Lab Routine Internal hemorrhoid, bleeding Other iron deficiency anemia Acquired hypothyroidism Hypertension, unspecified type Expected: 12/01/2024, Expires: 12/01/2025 Ferritin Lab Routine Internal hemorrhoid, bleeding Other iron deficiency anemia Acquired hypothyroidism Hypertension, unspecified type Expected: 12/01/2024, Expires: 12/01/2025 TSH W/Reflex to FT4 Lab Routine Internal hemorrhoid, bleeding Other iron deficiency anemia Acquired hypothyroidism Hypertension, unspecified type Expected: 12/01/2024 (Approximate), Expires: 12/01/2025 documented as of this encounter Goals Goal Patient Goal Type Associated Problems Recent Progress Patient-Stated? Author Blood Pressure < 140/90 Blood Pressure 136/81( 025 8:59 AM EDT) No Puia, Thalia, PharmD Record your blood pressure once per day Blood Pressure No Puia, Thalia, PharmD documented as of this encounter Visit Diagnoses Diagnosis Internal hemorrhoid, bleeding- Primary Other iron deficiency anemia Acquired hypothyroidism Unspecified hypothyroidism Hypertension, unspecified type documented in this encounter Additional Health Concerns Assessment Noted Time PHQ-9 Depression Total Score: 0 05/07/20 23 9:03 AM EDT documented as of this encounter Care Teams Crystal Flat Grinder Relationship Specialty Start Date End Date Name, MD Shai [address] [place] [address] PCP - General Family Medicine 02/13/17 Thalia Boland PharmD [address] [place] [address] Pharmacist Internal Medicine 09/21/23 documented as of this encounter
--- OUTSIDE RECORDS SUMMARY | 2024-12-01 09:52 | XMS_ITS | Encounter Summary ---
Author Organization [employer] [facility] Address [address] [facility] 7[address] [place] [address] Care Team Providers Care Community Services Manager Name Role Phone Name, Shai GOMEZ Primary Care Provider [phone] Thalia Boland PharmD Unavailable [phone] Encounter Details Date Type Department Care Team (Late st Contact Info) Description 08/13/2022 Orders Only [facility] [address] [place] [address] Crystal Hood LPN Social History Tobacco Use Types Packs/Day Years Used Date Smoking Tobacco: Never Assessed Sex and Gender Information Value Date Recorded Sex Assigned at Male 06/30/2022 10:31 AM EDT Legal Sex Male 10:31 AM EDT Gender Identity Male 06/30/2022 10:31 AM EDT Sexual Orientation Straight 06/30/2022 10 :31 AM EDT documented as of this encounter Plan of Treatment Not on file documented as of this encounter Visit Diagnoses Not on filedocumented in this encounter Care Teams Community Services Manager Relationship Specialty Start Date End Date Name, MD Shai [address] [place] [address] PCP - General Family Medicine 02/13/17 Thalia Boland, PharmD [address] [place], [place] [phone] Pharmacist Internal Medicine 09/21/23 documented as of this encounter
--- OUTSIDE RECORDS SUMMARY | 2024-12-01 09:52 | XMS_ITS | Encounter Summary ---
Author Organization [employer] Address [address] [facility] 7[address] [place] [address] Care Team Providers Care Upset Welding Machine Operator Name Role Phone Name, Shai GOMEZ Primary Care Provider [phone] Thalia Boland PharmD Unavailable [phone] Encounter Details Date Type Department Care Team (Latest Contact Info) Description 12/01/2024 Travel Social History Tobacco Use Types Packs/Day Years Used Date Smoking Tobacco: Never Smokeless Tobacco: Never Alcohol Use Standard Drinks/Week Comments Yes 0 (1 standard drink = 0.6 oz pur e alcohol) social Depression Answer Date Recorded Patient Health Questionnaire-9 Score 0 05/07/2023 Housing Stability Answer Date Recorded What is your housing situation today? I have edinmarvin rodriguez 06/29/[address] you [...] on file documented as of this encounter Goals Goal Patient Goal Type Associated Problems Recent Progress Patient-Stated? Author Blood Pressure < 140/90 Blood Pressure 136/81( 025 8:59 AM EDT) No YumiiaThalia, PharmD Record your blood pressure once per day Blood Pressure No Thalia Boland, PharmD documented as of this encounter Visit Diagnoses Not on filedocumented in this encounter Additional Health Concerns Assessment Noted Time PHQ-9 Depression Total Score: 0 05/07/20 23 9:03 AM EDT documented as of this encounter Care Teams Upset Welding Machine Operator Relationship Specialty Start Date End Date Name, MD Shai [address] [place] [address] PCP - General Family Medicine 02/13/17 Thalia Boland, PharmD [address] [place] [address] Pharmacist Internal Medicine 09/21/23 documented as of this encounter
--- OUTSIDE RECORDS SUMMARY | 2024-12-01 09:52 | XMS_ITS | Encounter Summary ---
Author Organization [facility] Address [address] [facility] 7t [place] [address] Care Team Providers Care Antichecking Iron Worker Name Role Phone Name, Shai GOMEZ Primary Care Provider [phone] Thalia Boland PharmD Unavailable [phone] Encounter Details Date Type Department Care Team (Latest Contact Info) Description 11/16/2018 Abstract [facility] Dental, Provider, DDS Social History Tobacco Use Types Packs/Day Years [...] on filedocumented in this encounter Care Teams Antichecking Iron Worker Relationship Specialty Start Date End Date Name, MD Shai [address] [place] [address] PCP - General Family Medicine 02/13/17 Thalia Boland, PharmD [address] [place] [address] Pharmacist Internal Medicine 09/21/23 documented as of this encounter
--- OUTSIDE RECORDS SUMMARY | 2024-12-01 09:52 | XMS_ITS | Clinical Summary ---
Author Organization [employer] Address [address] [facility] 7[address] [place] [address] Care Team Providers Care Dental Office Coordinator Name Role Phone Name, Shai GOMEZ Primary Care Provider Thalia Boland PharmD Unavailable [phone] Allergies No known active allergies Medications losartan (Cozaar) 100 MG tabletIndications: Primary hypertension TAKE 1 TABLET BY MOUTH EVERY MORNING 90 tablet 3 4 Active amLODIPine (Norvasc) 10 MG tabletIndications: Primary hypertension Take 1 tablet (10 mg) by mouth Once per day. 90 tablet 3 4 Active omeprazole (PriLOSEC) [address] capsule Take 40 mg by mouth Once per day. 4 Active ferrous sulfate 325 (65 Fe) MG EC tabletIndications: Other iron deficiency anemia Take 1 tablet (325 mg) by mouth every other day. Do not crush, chew, or split. 15 tablet 11 4 08/02/20 25 Active levothyroxine (Synthroid, Levoxyl) 137 MCG tabletIndications: Acquired hypothyroidism Take 137 mcg by mouth in the morning. 30 tablet 5 4 Active Viagra 100 MG tablet TAKE 1 TABLET 1 HOUR BEFORE SEXUAL RELATIONS ONCE DAILY NEEDED. 10 tablet 2 5 Active Active Problems Problem Noted Date Diagnosed Date Anosmia 08/18/2023 Hypertensive disorder 08/29/2022 Acquired hypothyroidism 02/17/2017 Erectile dysfunction 02/17/2017 History of thyroidectomy 02/17/2017 Overview (03/29/2024): Patient had thyroid large nodule removed Total thyroidectomy was done Non malignant Done back 2012 in [place] Encounters Date Type Department Care Team Description 12/01/2024 9:00 AM EDT Office Visit [facility] [address] [place] [place] [address] Name, MD Shai Internal hemorrhoid, bleeding (Primary Dx); Other iron deficiency anemia; Acquired hypothyroidism; Hypertension, unspecified type 12/01/2024 Travel 10/03/2024 Refill [facility] [address] [facility] [place] [address] Name, MD Shai 09/16/2024 Telephone [facility] [address] [place] [address] Orlando Schneider [place] october recalls from Last 3 Months Immunizations Name Administration Dates Next Due Hep B, adult 01/06/2024(Deferred: History of disease - Immune d/t resovled infection per titers 10/2023) Pfizer Covid-19 Vaccine 12+ 09/21/2023(D eferred: Patient Refused),01/30/2021,01/09/2021 TD (adult), 2 Lf tetanus tox oid, preservative free, adsorbed 06/14/2020 Social History Tobacco Use Types Packs/Day Years [...] t he electric, gas, oil or water [employer] threatened to shut off services in your [...] Orientation Straight 06/30/2022 10 :31 AM EDT Last Filed Vital Signs Vital Sign Reading [...] Mass Index 32.02 12/01/2024 8:59 AM EDT Plan of Treatment Health Maintenance Due Date Last Done Comments CT Colonography 1978 FIT DNA/Cologuard 1978 FIT 1978 FOBT 1978 HIV Screening 1978 Sigmoidoscopy 1978 Family Planning (PISQ) 1993 Hepatitis C Screening 02/11/1996 DTaP/Tdap/Td Vaccines (1 - Tdap) 06/15/2020 06/14/2020 Influenza Vaccine (#1) 2024 Depression Screening 05/07/2024 05/07/2023, 05/07/2023 Alcohol/Substance Use Screening 03/29/2025 03/29/2024 SDOH Screening 04/26/2025 04/26/2024 Tobacco Screening 12/01/2025 12/01/2024 Zoster Vaccines (1 of 2) 02/11/2028 Lipid Panel 05/07/2028 05/07/2023, 07/18/2021 Colonoscopy 04/21/2034 04/21/2024 Colorectal Cancer Screening 04/21/2034 RSV Patients and Patients Aged 60 years or older (1 - 1-dose 75+ series) 2053 COVID-19 Vaccine Discontinued 09/09/2021, 01/30/2021, 01/09/2021 HIB Vaccines Aged Out No longer eligi ble based on patient's age to complete this topic HPV Vaccines Aged Out No longer eligi ble based on patient's age to complete this topic Hepatitis A Vaccines Aged Out No long er eligible based on patient's age to complete this topic Hepatitis B Vaccines Discontinued IPV Vaccines Aged Out No longer eligi ble based on patient's age to complete this topic Meningococcal Vaccine Aged Out No mariposa rian eligible based on patient's age to complete this topic Pneumococcal Vaccine: Pediatrics (0 to 5 Years) and At-Risk Patients (6 to 49) Years) Aged Out No longer eligible based on patient's age to complete this topic RSV under 20 months Aged Out No longe r eligible based on patient's age to complete this topic Rotavirus Vaccines Aged Out No longer eligible based on patient's age to complete this topic Goals Goal Patient Goal Type Associated Problems Recent Progress Patient-Stated? Author Blood Pressure < 140/90 Blood Pressure 136/81( 025 8:59 AM EDT) No Thalia Boland, PharmD Record your blood pressure once per day Blood Pressure No Puia, Thalia, PharmD Procedures Procedure Name Priority Date/Time Associated Diagnosis Comments COLONOSCOPY Routine 04/21/2024 LIPID PANEL, STANDARD Routine 05/07/2023 10:16 AM EDT Screening for cholesterol level from Last 3 Months or Most Recently Relevant to Health Maintenance Results * Colonoscopy (04/21/2024) Colonoscopy Normal Normal us Shai Huang MD HEALTH MAINTENANCE Final Result * (ABNORMAL) Lipid Panel, Standard (05/07/2023 10:16 AM EDT) Triglycerides 80 <150 mg/dL [facility] Comment:Desirable Triglyceri de: less than 150 mg/dLBorderline High Triglyceride 150-199 mg/dLHigh Triglyceride: 200-499 mg/dLVery High Triglyceride: greater than or equal to 5OO mg/dL Cholesterol 185 <200 mg/dL [facility] Comment:Desirable Cholestero l: less than 200 mg/dLBorderline High Cholesterol: 200-239 mg/dLHigh Cholesterol: greater than 239 mg/dL LDL Cholesterol Calculated 110(H) <100 mg/dL [facility] Comment:Desirable LDL: less than 100 mg/dLNear Optimal/Above Optimal LDL: 110- 129 mg/dLBorderline High LDL: 130-159 mg/dLHigh LDL: 160-189 mg/dLVery High LDL: greater than or equal to 190 mg/dL HDL Cholesterol 59 >40 mg/dL [facility] Comment:Desirable HDL: great er than 40 mg/dL Note: This HDL assay may give artificially low results in patients with liver disease. Blood Venous blood specimen / Unknown 05/07/2023 10:16 AM EDT 05/07/2023 11:11 AM EDT us Shai Name LAB BLOOD ORDERABLES Final Resul t [facility] [address] [place] [phone] from Last 3 Months or Most Recently Relevant to Health Maintenance Insurance [facility] Care Teams Dental Office Coordinator Relationship Specialty Start Date End Date Name, MD Shai [address] [place] [address] PCP - General Family Medicine 02/13/17 Thalia Boland PharmD [address] [place] [address] Pharmacist Internal Medicine 09/21/23
[2024-12-01 11:33] LABS: MANUAL DIFF FLAG NO
[2024-12-01 11:50] LABS: Basophils Percent Auto 0.7 % (0-2); Eosinophils Absolute Auto 0.1 X10*3/uL (0.0-0.4); Eosinophils Percent Auto 2.2 % (0-4); Hematocrit 38.2 % (42.0-52.0); Hemoglobin 11.4 g/dl (14.0-18.0); Lymphocytes Absolute Auto 1.3 X10*3/uL (1.2-4.9); Lymphocytes Percent Auto 32.5 % (20-40); Mean Corpuscular HGB Conc 29.8 g/dl (31.0-36.0); Mean Corpuscular Hemoglobin 22.4 pg (27.0-33.0); Mean Corpuscular Volume 74.9 fL (80.0-98.0); Mean Platelet Volume 10.1 fL (9.4-12.4); Monocytes Absolute Auto 0.5 X10*3/uL (0.1-1.2); Monocytes Percent Auto 12.1 % (2-11); Neutrophils Absolute Auto 2.2 x10*3/uL (2.0-8.3); Neutrophils Percent Auto 52.5 % (45-73); Platelet Count 320 X10*3/uL (160-400); Red Cell Distribution Width 20.1 % (11.0-16.0); White Blood Count 4.1 X10*3/uL (4.8-10.8)
[2024-12-01 12:21] LABS: Alanine Aminotransferase 37 U/L (0-40); Albumin Level 4.2 g/dL (3.5-5.0); Alkaline Phosphatase 74 U/L (39-117); Anion Gap 10 (12-20); Aspartate Amino Transferase 34 U/L (5-37); Bilirubin Total 0.4 mg/dL (0.0-1.0); Blood Urea Nitrogen 12 mg/dL (9-16); Calcium 8.9 mg/dL (8.4-10.2); Carbon Dioxide 26 mmol/L (22-29); Chloride 107 mmol/L (96-108); Cholesterol 164 mg/dL (<200); Estimated Glomerular Filt Rate > 60; Ferritin 8 ng/mL (20-250); Glucose Random 92 mg/dL (60-115); HDL Cholesterol 43 mg/dL (>40); Iron 26 mcg/dL (45-160); LDL Cholesterol Calculated 111 mg/dL (<100); Percent Iron Saturation 6 % (15-50); Potassium 3.9 mmol/L (3.3-5.1); Sodium 139 mmol/L (135-145); TSH reflex Free T4 1.39 uIU/mL (0.32-4.0); Total Iron Binding Capacity 403 mcg/dL (228-428); Total Protein 7.5 g/dL (6.5-8.0); Triglycerides 54 mg/dL (<150); Unsaturated Iron Binding 377 ug/dL
== END 2024-12-01 09:21 | disposition home or self-care (01) ==
LOC: HO.HHCL 09:20
PROVIDERS: Visit Provider Internal Medicine Geriatric Medicine
DX: K64.8 Other hemorrhoids (principal); D50.8 Other iron deficiency anemias; E03.9 Hypothyroidism, unspecified; I10 Essential (primary) hypertension
CPT/HCPCS: 36415; 80053; 80061; 82728; 83540; 84443; 85025

== ENCOUNTER 2025-05-09 09:25 | Outpatient (REF) | payer OTHER, SELFPAY ==
--- OUTSIDE RECORDS SUMMARY | 2025-05-09 09:30 | XMS_ITS | Encounter Summary ---
Author Organization [employer] Address [address] [facility] [address]t [place] [address] Care Team Providers Care Shells Inspector Name Role Phone Name, Shai GOMEZ Primary Care Provider [phone] Reason for Visit * Reason Comments Blood Pressure Check Encounter Details Date Type Department Care Team (Latest Contact Info) Description 05/09/2025 9:30 AM EDT Clinical Support [facility] [address] [place], [place] [phone] Kailee Valles, KHANH [address] [place], [place] [phone] Primary hypertension Social History Tobacco Use Types Packs/Day Years Used Date Smoking Tobacco: Never Smokeless Tobacco: Never Tobacco Cessation:Counseling Given: Not Answered Alcohol Use Standard Drinks/Week Comments Yes 0 (1 standard drink = 0.6 oz pur e alcohol) social Alcohol Answer Date Recorded How often do you have a drink containing alcohol ? 2 04/25/2025 How many drinks containing a lcohol do you have on a typical day when you are drinking? 1 04/25/2025 How often do you have six or more drinks on one occasion? 1 04/25/2025 Depression Answer Date Recorded Patient Health Questionnaire-9 Score 0 04/25/2025 Patient Health Questionnaire-9 Score 0 04/25/2025 Last PHQ-9: Questionnaire Data Not on file 0 04/25/2025 Housing Stability Answer Date Recorded What is [...] Date Recorded Patient Health Questionnaire-2 Score 0 04/25/2025 Internet Access Answer Date Recorded Internet Access [...] Sign Reading Time Taken Comments Blood Pressure 138/84 05/09/2025 10:02 AM EDT Pulse 60 05/09/2025 10:02 AM EDT Temperature - - Respiratory Rate 18 05/09/2025 10:02 AM EDT Oxygen Saturation 99% 05/09/2025 10:02 AM EDT Room air Inhaled Oxygen Concentration - - Weight 100 kg (221 lb) 05/09/2025 10:02 AM EDT Height - - Body Mass Index 30.82 04/25/2025 9:24 AM EDT documented in this encounter Progress Notes * Kailee Valles RN - 05/09/2025 9:30 AM EDT S: T/C to pt for televisit for BP Check. Pt states that he is currently in the lab at [facility]. Agrees to come to [facility] in person for Bp check. 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 Reports that he is planning to join a gym with his 15 year old son in a couple of weeks. Pt reports that he eats everything including beans, meat, rice, plantains and malanga. Pt denies smoking cigarettes. Reports that he drinks socially 1-2 times per week. Reports that he never has more than 6 paulino at at time. Pt reports that his bp at home this morning was 145/85. States home bps have been 147, 150, 155/ 85, 80. Pt reports that he is motivated to start exercising and his goal is have one of his BP meds removed at pcp follow up. Pt denies headache, chest pain, sob, dizziness and visual changes today. O: Pt currently rx Hyzaar 100-12.5 mg po daily and amlodipine 10 mg po daily. Pt states he is taking medications as rx and took them today. A: BP today 138/84 P 60; r 18; O2 99% room air; Wt: 221.0 lb P: Pt advised to take medications as rx. Pt encouraged to adhere to low sodium diet. Pt encouraged to increase amount and frequency of exercise. Pt states he prefers in person appts and agrees to nurse visit 06/13/25 for Bp check. Agrees to check BP at home, record and bring to f/u nurse visit. Advised nurse note will be sent to pcp and pt will be advised if there are any changes. documented in this encounter Plan of Treatment Upcoming Encounters Date Type Department Care Team (Late st Contact Info) Description 06/13/2025 10:00 AM EDT Clinical Support [facility] [address] [place] [phone] 07/14/2025 9:00 AM EST Office Visit [facility] [address] [place] [phone] Name, MD Shai [address] [place] [phone] documented as of this encounter Goals Goal Patient Goal Type Associated Problems Recent Progress Patient-Stated? Author Blood Pressure < 140/90 Blood Pressure 138/84( 025 10:02 AM EDT) No Thalia Boland, PharmSaul Record your blood pressure once per day Blood Pressure No Thalia Boland PharmD documented as of this encounter Visit Diagnoses Diagnosis Primary hypertension Unspecified essential hypertension documented in this encounter Additional Health Concerns Assessment Noted Time PHQ-9 Depression Total Score: 0 04/25/20 9:38 AM EDT documented as of this encounter Care Teams Shells Inspector Relationship Specialty Start Date End Date Name, MD Shai [address] [place] [address] PCP - General Family Medicine 02/13/17 documented as of this encounter
--- OUTSIDE RECORDS SUMMARY | 2025-05-09 10:51 | XMS_ITS | Encounter Summary ---
Author Organization [employer] Address [address] [facility] 7t [place] [address] Care Team Providers Care Oyster Grower Name Role Phone Name, Shai GOMEZ Primary Care Provider [phone] Encounter Details Date Type Department Care Team (Latest Contact Info) Description 05/09/2025 Travel Social History Tobacco Use Types Packs/Day [...] as of this encounter Plan of Treatment Upcoming Encounters Date Type Department Care Team (Late st Contact Info) Description 06/13/2025 10:00 AM EDT Clinical Support [facility] [address] [place] [address] 07/14/2025 9:00 AM EST Office Visit [address] [address] Name, MD Shai [address] [place] [address] documented as of this encounter Goals Goal Patient Goal Type Associated Problems Recent Progress Patient-Stated? Author Blood Pressure < 140/90 Blood Pressure 138/84( 025 10:02 AM EDT) No Puia, Thalia, PharmD Record your blood pressure once per day Blood Pressure No Puia, Thalia, PharmD documented as of this encounter Visit Diagnoses Not on filedocumented in this encounter Additional Health Concerns Assessment Noted Time PHQ-9 Depression Total Score: 0 04/25/20 25 9:38 AM EDT documented as of this encounter Care Teams Oyster Grower Relationship Specialty Start Date End Date NameShai MD [address] [place] [address] PCP - General Family Medicine 02/13/17 documented as of this encounter
--- OUTSIDE RECORDS SUMMARY | 2025-05-09 10:51 | XMS_ITS | Clinical Summary ---
Author Organization [employer] Address [address] [facility] 7t [place] [address] Care Team Providers Care Planer Operator Name Role Phone Name, Shai GOMEZ Primary Care Provider [phone] Allergies No known active allergies Medications omeprazole (PriLOSEC) [address] capsule Take 40 mg by mouth Once per day. 07/12/20 24 Active ferrous sulfate 325 (65 Fe) MG EC tabletIndications: Other iron deficiency anemia Take 1 tablet (325 mg) by mouth every other day. Do not crush, chew, or split. 15 tablet 11 08/02/20 24 025 Active amLODIPine (Norvasc) 10 MG tabletIndications: Primary hypertension Take 1 tablet (10 mg) by mouth Once per day. 90 tablet 3 12/27/19 25 Active levothyroxine (Synthroid, Levoxyl) 137 MCG tabletIndications: Acquired hypothyroidism TAKE 1 TABLET BY MOUTH EVERY MORNING 30 tablet 5 02/24/20 25 Active Viagra 100 MG tablet TAKE 1 TABLET 1 HOUR BEFORE SEXUAL RELATIONS ONCE DAILY NEEDED. 10 tablet 2 04/06/20 25 Active losartan-hydroCHLO ROthiazide (Hyzaar) 100-12.5 MG tablet Take 1 tablet by mouth Once per day. 30 tablet 11 04/25/20 25 026 Active losartan (Cozaar) 100 MG tabletIndications: Primary hypertension Take 1 tablet (100 mg) by mouth in the morning. 90 tablet 3 12/27/19 25 025 Discontin ued(Ineff ective) Active Problems Problem Noted Date Diagnosed Date Anosmia 08/18/2023 Hypertensive disorder 08/29/2022 Acquired hypothyroidism 02/17/2017 Erectile dysfunction 02/17/2017 History of thyroidectomy 02/17/2017 Overview (03/29/2024): Patient had thyroid large nodule removed Total thyroidectomy was done Non malignant Done back 2012 in [place] Encounters Date Type Department Care Team Description 05/09/2025 9:30 AM EDT Clinical Support [facility] [address] [place] [address] Kailee Valles RN Primary hypertension 05/09/2025 Travel 04/25/2025 9:15 AM EDT Office Visit [facility] [address] [place] [address] Shai Huang MD Hypertension, unspecified type (Primary Dx); Acquired hypothyroidism; Internal hemorrhoid, bleeding 04/25/2025 Travel 04/24/2025 Telephone [facility] [address] [place] [address] Orlando Schneider MA chart prep 04/06/2025 Refill [facility] [address] [place] [address] Shai Huang MD 02/23/2025 Refill [facility] [address] [place] [address] Shai Huang MD Acquired hypothyroidism from Last 3 Months Immunizations Immunization Administration Dates Next Due Hep B, adult [...] Pulse 60 05/09/2025 10:02 AM EDT Temperature 36.3 C (97.4 F) 04/25/2025 9:24 AM EDT Respiratory Rate 18 05/09/2025 10:02 AM EDT Oxygen Saturation 99% 05/09/2025 10:02 AM EDT Room air Inhaled Oxygen Concentration - - Weight 100 kg (221 lb) 05/09/2025 10:02 AM EDT Height 180.3 cm (5' 11 ) 04/25/2025 9:24 AM EDT Body Mass Index 30.82 04/25/2025 9:24 AM EDT Plan of Treatment Upcoming Encounters Date Type Department Care Team (Late st Contact Info) Description 06/13/2025 10:00 AM EDT Clinical Support [facility] [address] [place] [address] 07/14/2025 9:00 AM EST Office Visit [address] [address] Name, [place] [address] Health Maintenance Due Date Last Done Comments CT Colonography 1978 FIT DNA/Cologuard 1978 FIT 1978 FOBT 1978 HIV Screening 1978 Sigmoidoscopy 1978 Family Planning (PISQ) 1993 Hepatitis C Screening 02/11/1996 DTaP/Tdap/Td Vaccines (1 - Tdap) 06/15/2020 06/14/2020 Influenza Vaccine (#1) 2025 Alcohol/Substance Use Screening 04/25/2026 04/25/2025 Depression Screening 04/25/2026 04/25/2025, 04/25/2025 Disability Screening 04/25/2026 04/25/2025 SDOH Screening 04/25/2026 04/25/2025 Tobacco Screening 05/09/2026 05/09/2025 Zoster Vaccines (1 of 2) 02/11/2028 Lipid Panel 12/01/2029 12/01/2024, 05/07/2023, 07/18/2021 Colonoscopy 04/21/2034 04/21/2024 Colorectal Cancer [...] patient's age to complete this topic Meningococcal B Vaccine Aged Out No l onger eligible based on patient's age to complete this topic Meningococcal Vaccine Aged Out No mariposa rian eligible based on patient's age to complete this topic Pneumococcal Vaccine: Pediatrics (0 to 5 Years) and At-Risk Patients (6 to 49) Years Aged Out No longer eligible based on [...] 138/84( 025 10:02 AM EDT) No Thalia Boland PharmD Record your blood pressure once per day Blood Pressure No Thalia Boland PharmD Procedures Procedure Name Priority Date/Time Associated Diagnosis Comments LIPID PANEL, STANDARD Routine 12/01/2024 9:23 AM EDT Internal hemorrhoid, bleeding Other iron deficiency anemia Acquired hypothyroidism Hypertension, unspecified type COLONOSCOPY Routine 04/21/2024 from Last 3 Months or Most Recently Relevant to Health Maintenance Results * (ABNORMAL) Lipid Panel, Standard (12/01/2024 9:23 AM EDT) Triglycerides 54 <150 mg/dL [facility] Comment:Desirable Triglyceri de: less than 150 mg/dLBorderline High Triglyceride 150-199 mg/dLHigh Triglyceride: 200-499 mg/dLVery High Triglyceride: greater than or equal to 5OO mg/dL Cholesterol 164 <200 mg/dL [facility] Comment:Desirable Cholestero l: less than 200 mg/dLBorderline High Cholesterol: 200-239 mg/dLHigh Cholesterol: greater than 239 mg/dL LDL Cholesterol Calculated 111(H) <100 mg/dL [facility] Comment:Desirable LDL: less than 100 mg/dLNear Optimal/Above Optimal LDL: 110- 129 mg/dLBorderline High LDL: 130-159 mg/dLHigh LDL: 160-189 mg/dLVery High LDL: greater than or equal to 190 mg/dL HDL Cholesterol 43 >40 mg/dL [facility] Comment:Desirable HDL: great er than 40 mg/dL Note: This HDL assay may give artificially low results in patients with liver disease. Blood Venous blood specimen / Unknown 12/01/2024 9:23 AM EDT 12/01/2024 11:30 AM EDT us Shai Huang MD LAB BLOOD ORDERABLES Final Resul t [facility] [address] [place] [phone] * Colonoscopy (04/21/2024) Colonoscopy Normal Normal Shai Huang MD HEALTH MAINTENANCE Final Result from Last 3 Months or Most Recently Relevant to Health Maintenance Insurance [facility] [address] [place] [address] Care Teams Planer Operator Relationship Specialty Start Date End Date Name, MD Shai [address] [place] [address] PCP - General Family Medicine 02/13/17
--- OUTSIDE RECORDS SUMMARY | 2025-05-09 10:51 | XMS_ITS | Encounter Summary ---
Author Organization [employer] Address [address] [facility] 7t [place] [address] Care Team Providers Care Network Pricing Consultant Name Role Phone Name, Shai GOMEZ Primary Care Provider [phone] Thalia Boland PharmD Unavailable [phone] Reason for Visit * Reason Comments Med Refill Encounter Details Date Type Department Care Team ([facility] st Contact Info) Description 12/22/2024 Refill [facility] [address] [place], [place] [phone] Thalia Boland, PharmD [address] [place], [place] [phone] Primary hypertension Social History Tobacco Use Types [...] AM EDT documented as of this encounter Miscellaneous Notes * Telephone Encounter - Rekha Gill PharmD - 12/22/2024 4:26 PM EDT Approving, but needs appt for additional refills. documented in this encounter Plan of Treatment Upcoming Encounters Date Type Department Care Team (Late st Contact Info) Description 06/13/2025 10:00 AM EDT Clinical Support [facility] [address] [place] [address] 07/14/2025 9:00 AM EST Office Visit [facility] [address] [place] [phone] NameShai MD [address] [place] [phone] documented as of this encounter Goals Goal Patient Goal Type Associated Problems Recent Progress Patient-Stated? Author Blood Pressure < 140/90 Blood Pressure 138/84( 025 10:02 AM EDT) No PuiaAlexThalia, PharmD Record your blood pressure once per day Blood Pressure No PuAlex navarreteyssa, PharmD documented as of this encounter Visit Diagnoses Diagnosis Primary hypertension Unspecified essential hypertension documented in this encounter Additional Health Concerns Assessment Noted Time PHQ-9 Depression Total Score: 0 05/07/20 23 9:03 AM EDT documented as of this encounter Care Teams Network Pricing Consultant Relationship Specialty Start Date End Date Shai Huang MD [address] [place] [address] PCP - General Family Medicine 02/13/17 Thalia Boland, Racquel [address] [place] [address] Pharmacist Internal Medicine 09/21/23 12/25/24 documented as of this encounter
--- OUTSIDE RECORDS SUMMARY | 2025-05-09 10:51 | XMS_ITS | Encounter Summary ---
Author Organization [employer] Address [address] [facility] 7t [place] [address] Care Team Providers Care Executive Relations Specialist Name Role Phone Name, Shai GOMEZ Primary Care Provider [phone] Thalia Boland PharmD Unavailable [phone] Encounter Details Date Type Department Care Team (Late st Contact Info) Description 08/13/2022 Orders Only [facility] [address] [place] [address] Crystal Hood LPN Social History Tobacco Use [...] Description 06/13/2025 10:00 AM EDT Clinical Support [facility] [address] [place] [address] 07/14/2025 9:00 AM EST Office Visit [facility] [address] [place] [address] Name, MD Shai [address] [place] [address] documented as of this encounter Visit Diagnoses Not on filedocumented in this encounter Care Teams Executive Relations Specialist Relationship Specialty Start Date End Date Shai Huang MD [address] [place] [address] PCP - General Family Medicine 02/13/17 Thalia Boland PharmD [address] [place] [phone] Pharmacist Internal Medicine 09/21/23 12/25/24 documented as of this encounter
--- OUTSIDE RECORDS SUMMARY | 2025-05-09 10:51 | XMS_ITS | Encounter Summary ---
Author Organization [employer] Address [address] [facility] 7t [place] [address] Care Team Providers Care Weigher And Mixer Name Role Phone Name, Shai GOMEZ Primary Care Provider [phone] Thalia Boland PharmD Unavailable [phone] Encounter Details Date Type Department Care Team (Latest Contact Info) Description 11/16/2018 Abstract [facility] Dental, Provider, DDS Social History [...] Description 06/13/2025 10:00 AM EDT Clinical Support [facility] [address] [place] [phone] 07/14/2025 9:00 AM EST Office Visit [facility] [address] [place] [phone] NameShai MD [address] [place] [phone] documented as of this encounter Visit Diagnoses Not on filedocumented in this encounter Care Teams Weigher And Mixer Relationship Specialty Start Date End Date Shai Huang MD [address] [place] [address] PCP - General Family Medicine 02/13/17 Thalia Boland, PharmD [address] [place] [address] Pharmacist Internal Medicine 09/21/23 12/25/24 documented as of this encounter
[2025-05-09 11:24] LABS: MANUAL DIFF FLAG NO
[2025-05-09 11:31] LABS: Hematocrit 39.8 % (42.0-52.0); Hemoglobin 13.0 g/dl (14.0-18.0); Imm Gran Abs Auto 0.02 X10*3/uL (0.00-0.03); Imm Gran Pct Auto 0.4 % (0.0-0.4); Lymphocytes Absolute Auto 1.6 X10*3/uL (1.2-4.9); Mean Corpuscular HGB Conc 32.7 g/dl (31.0-36.0); Mean Corpuscular Hemoglobin 26.5 pg (27.0-33.0); Mean Corpuscular Volume 81.2 fL (80.0-98.0); NRBC Abs Auto 0.000 X10*3/uL (0.0-0.012); NRBC Pct Auto 0.0 /100WBC (0.0-0.2); Platelet Count 248 X10*3/uL (160-400); Red Blood Count 4.90 X10*6/uL (4.60-5.80); White Blood Count 5.6 X10*3/uL (4.8-10.8)
[2025-05-09 12:11] LABS: Anion Gap 11 (12-20); Blood Urea Nitrogen 13 mg/dL (9-16); Calcium 8.8 mg/dL (8.4-10.2); Carbon Dioxide 28 mmol/L (22-29); Chloride 104 mmol/L (96-108); Estimated Glomerular Filt Rate > 60; Ferritin 5 ng/mL (20-250); Iron 30 mcg/dL (45-160); Percent Iron Saturation 8 % (15-50); Potassium 3.9 mmol/L (3.3-5.1); Sodium 139 mmol/L (135-145); Total Iron Binding Capacity 389 mcg/dL (228-428); Unsaturated Iron Binding 359 ug/dL
== END 2025-05-09 09:26 | disposition home or self-care (01) ==
LOC: HO.HHCL 09:25
PROVIDERS: PCP Internal Medicine Geriatric Medicine; Visit Provider Internal Medicine Geriatric Medicine
DX: E03.9 Hypothyroidism, unspecified (principal); K64.8 Other hemorrhoids; I10 Essential (primary) hypertension
CPT/HCPCS: 36415; 80048; 82728; 83540; 84443; 85025

== ENCOUNTER 2025-05-31 14:02 | Outpatient (AMB) | payer OTHER, SELFPAY ==
[2025-05-31 14:06] VITALS: BP 138/79; PULSE 68; BMI 30.4
--- NOTE | 2025-05-31 14:06 | A.OFFVIS_ITS ---
Vital Signs 05/31/25 14:06 Height 5 ft 11 in Weight 218 lb BMI 30.4 BP 138/79 Blood Pressure Location Lt brachial Position Sitting Pulse 68 Intake Visit Reasons: internal hemorrhoids Intake Note: This patient presents for an assessment for internal hemorrhoids. Pt c/o; reports he had a colonoscopy and EGD in [facility] years ago, reports intermittent rectal bleeding after bowel movements. [employer] Res[employer] Commander Required: No Accompanied by: Self / Same As Patient Allergies No Known Allergies Allergy (Verified 05/31/25 14:16) Medication List - Last Reconciled 05/31/25 by Joao Vallejo MD amlodipine 10 mg PO DAILY ferrous fumarate 325 mg PO DAILY levothyroxine 137 mcg PO DAILY losartan 100 mg PO DAILY omeprazole 40 mg PO DAILY HPI HPI internal hemorrhoids: Details: 45-year-old male referred for hemorrhoids. He describes having passage of bright blood per rectum periodically for couple of years now. He said he had an EGD and colonoscopy in [facility] [place] about an year ago and was told he had hemorrhoids. He said a polyp was also removed at that time He is being followed by the flux core welder service here in [place] for his blood per rectum with anemia. He said he is supposed to have a capsule endoscopy He said that he had been told he had hemorrhoids. Because of his passage of bright blood per rectum, he was referred to me He says that the bleeding seemed to have been more frequent before. However, he says that this happens every few weeks. He denies being constipated. Denies any pain. Does feel that occasionally his hemorrhoids are swollen. [facility] Medical History (Updated 05/31/25 @ 14:40 by Joao Vallejo MD) Bleeding hemorrhoids Rectal bleeding Surgical History History of esophagogastroduodenoscopy (EGD) H/O thyroidectomy H/O colonoscopy Social History Alcohol intake: former Patient Tobacco Use Status: Never used Tobacco Review of Systems Const Denies chills and Denies fever(s) Card Denies chest pain, Denies dyspnea and Denies dyspnea on exertion Resp Denies cough, Denies dyspnea and Denies dyspnea on exertion GI Reports hematochezia and Denies change in bowel habits Denies hematuria and Denies difficulty urinating Musc Denies back pain and Denies limited range of motion Neuro Denies focal weakness and Denies convulsions Psych Denies depression and Denies mood swings Physical Exam Vital Signs: Last Vital Signs Pulse 68 05/31/25 14:06 BP 138/79 05/31/25 14:06 BMI result Body Mass Index 30.4 Const General: comfortable and no acute distress Orientation/consciousness: patient oriented x3 Neck Neck: Yes no lymphadenopathy Resp Auscultation: clear to auscultation bilaterally Cardio Rhythm: regular rhythm GI Other: Rectal exam shows external hemorrhoids on the left and right side Palpation (GI): Soft to palpation, nontender and no guarding Neuro General: patient oriented x3 Office Procedures Anoscopy She was in kneeling cira-knife position. The anoscope was gently inserted. A full examination of the anal canal was done. He did have a mix of internal exam and external hemorrhoidal columns on both the left and right side. There is no active bleeding. There were no other lesions or any fissure or ulceration. There was no induration on digital exam. [id number] Assessment & Plan Assessment & Plan (1) Bleeding hemorrhoids: Code(s): K64.9 - Unspecified hemorrhoids Category: Medical Plan: He presents for periodic passage of bright blood per rectum. He is currently undergoing workup with Gastroenterology for anemia with blood per rectum He does have internal and external hemorrhoids and this may be the source of his bleeding as well. I explained to him the option of proceeding with appendectomy. I discussed him the risks including but not limited to bleeding, infections, postop pain, as well as the benefits and alternatives. I reviewed with him what to expect postoperatively He says that he would like to hold off on hemorrhoid surgery at this time. I will give him a suppository to help with his occasional swelling. I told him that he can come back to the office down the line if he wants to be re-evaluated at some point He is comfortable with the plan. Coding Level of Care Code New Pt Level 3 (79235) Diagnoses Bleeding hemorrhoids K64.9 CPT Codes Details - CPT: [id number] ([id number])
--- OUTSIDE RECORDS SUMMARY | 2025-05-31 15:14 | XMS_ITS | Encounter Summary ---
Author Organization [employer] Address [address] [facility] 7t [place] [address] Care Team Providers Care Extruder Operator Helper Name Role Phone Name, Shai GOMEZ Primary Care Provider [phone] Thalai Boland PharmD Unavailable [phone] Encounter Details Date Type Department Care Team (Late st Contact Info) Description 08/13/2022 Orders Only [facility] [address] [place] [address] Crystal Hood LPN Social History Tobacco Use [...] Description 06/13/2025 10:00 AM EDT Clinical Support [facility] [address] [place] [address] 07/14/2025 9:00 AM EST Office Visit [facility] [address] [place] [address] Name, MD Shai [address] [place] [address] documented as of this encounter Visit Diagnoses Not on filedocumented in this encounter Care Teams Extruder Operator Helper Relationship Specialty Start Date End Date Shai Huang MD [address] [place] [address] PCP - General Family Medicine 02/13/17 Thalia Boland PharmD [address] [place] [address] Pharmacist Internal Medicine 09/21/23 12/25/24 documented as of this encounter
--- OUTSIDE RECORDS SUMMARY | 2025-05-31 15:14 | XMS_ITS | Clinical Summary ---
Author Organization [employer] Address [address] [facility] [address] [place] [address] Care Team Providers Care Generator Repairer Name Role Phone Name, Shai GOMEZ Primary Care Provider [phone] Allergies No known active allergies Medications omeprazole [...] 2 04/06/20 25 Active losartan-hydroCHLO ROthiazide (Hyzaar) 100-25 MG tablet Take 1 tablet by mouth Once per day. 30 tablet 11 05/09/20 25 026 Active losartan-hydroCHLO ROthiazide (Hyzaar) 100-12.5 MG tablet Take 1 tablet by mouth Once per day. 30 tablet 11 04/25/20 25 025 Discontin ued(Dose adjustmen t) Active Problems Problem Noted Date Diagnosed Date Anosmia 08/18/2023 Hypertensive disorder 08/29/2022 Acquired hypothyroidism 02/17/2017 Erectile dysfunction 02/17/2017 History of thyroidectomy 02/17/2017 Overview (03/29/2024): Patient had thyroid large nodule removed Total thyroidectomy was done Non malignant Done back 2012 in [place] Encounters Date Type Department Care Team Description 05/09/2025 9:30 AM EDT Clinical Support [facility] [address] [place] [address] Kailee Valles RN Primary hypertension 05/09/[address] [address] Shai Huang MD 05/09/2025 Travel 04/25/2025 9:15 AM EDT Office Visit [facility] [address] [place] [address] Shai Huang MD Hypertension, unspecified type (Primary Dx); Acquired hypothyroidism; Internal hemorrhoid, bleeding 04/25/2025 Travel 04/24/2025 Telephone [facility] [address] [place] [address] Orlando Schneider MA chart prep 04/06/2025 Refill [facility] [address] [place] [address] Shai Huang MD from Last 3 Months Immunizations Immunization Administration [...] Description 06/13/2025 10:00 AM EDT Clinical Support [facility] [address] [place] [phone] 07/14/2025 9:00 AM EST Office Visit [address] [address] Name, [place] [address] Health Maintenance Due Date Last Done Comments [...] Procedure Name Priority Date/Time Associated Diagnosis Comments TSH W/REFLEX TO FT4 Routine 05/09/2025 9 :34 AM EDT Hypertension, unspecified type Acquired hypothyroidism Internal hemorrhoid, bleeding BASIC METABOLIC PANEL Routine 05/09/2025 9:34 AM EDT Hypertension, unspecified type Acquired hypothyroidism Internal hemorrhoid, bleeding IRON AND TOTAL IRON BINDING CAPACITY Routine 05/09/2025 9:34 AM EDT Hypertension, unspecified type Acquired hypothyroidism Internal hemorrhoid, bleeding FERRITIN Routine 05/09/2025 9:34 AM EDT Hypertension, unspecified type Acquired hypothyroidism Internal hemorrhoid, bleeding CBC WITH AUTO DIFFERENTIAL Routine 05/09/2025 9:34 AM EDT Hypertension, unspecified type Acquired hypothyroidism Internal hemorrhoid, bleeding LIPID PANEL, STANDARD Routine 12/01/2024 9:23 AM EDT Internal hemorrhoid, bleeding Other iron deficiency anemia Acquired hypothyroidism Hypertension, unspecified type HM COLONOSCOPY Routine 04/21/2024 from Last 3 Months or Most Recently Relevant to Health Maintenance Results * TSH W/Reflex to FT4 (05/09/2025 9:34 AM EDT) TSH reflex Free T4 0.98 0.32 - 4.0 uIU/mL [facility] Blood Venous blood specimen / Unknown 05/09/2025 9:34 AM EDT 05/09/2025 11:20 AM EDT us Shai Name MD LAB BLOOD ORDERABLES Final Resul t [facility] [address] [place] [address] [phone] * (ABNORMAL) CBC auto differential (05/09/2025 9:34 AM EDT) Pathologist [facility] White Blood Count 5.6 4.8 - 10.8 X10*3/uL [facility] Red Blood Count 4.90 4.60 - 5.80 X10*6/uL [facility] Hemoglobin 13.0(L) 14.0 - 18.0 g/dl [facility] Hematocrit 39.8(L) 42.0 - 52.0 % [facility] Mean Corpuscular Volume 81.2 80.0 - 98.0 fL [facility] Mean Corpuscular Hemoglobin 26.5(L) 27.0 - 33.0 pg [facility] Mean Corpuscular HGB Conc 32.7 31.0 - 36.0 g/dl [facility] Red Cell Distribution Width 15.3 11.0 - 16.0 % [facility] Platelet Count 248 160 - 400 X10*3/uL [facility] Mean Platelet Volume 10.3 9.4 - 12.4 fL [facility] Neutrophils Percent Auto 60.9 45 - 73 % [facility] Imm Gran Pct Auto 0.4 0.0 - 0.4 % [facility] Lymphocytes Percent Auto 28.0 20 - 40 % [facility] Monocytes Percent Auto 8.7 2 - 11 % [facility] Eosinophils Percent Auto 1.6 0 - 4 % [facility] Basophils Percent Auto 0.4 0 - 2 % [facility] NRBC Pct Auto 0.0 0.0 - 0.2 /100WBC [facility] Neutrophils Absolute Auto 3.4 2.0 - 8.3 x10*3/uL [facility] Imm Gran Abs Auto 0.02 0.00 - 0.03 X10*3/uL [facility] Lymphocytes Absolute Auto 1.6 1.2 - 4.9 X10*3/uL [facility] Monocytes Absolute Auto 0.5 0.1 - 1.2 X10*3/uL [facility] Eosinophils Absolute Auto 0.1 0.0 - 0.4 X10*3/uL [facility] Basophils Absolute Auto 0.0 0.0 - 0.2 X10*3/uL [facility] NRBC Abs Auto 0.000 0.0 - 0.012 X10*3/uL [facility] Blood Venous blood specimen / Unknown 05/09/2025 9:34 AM EDT 05/09/2025 11:20 AM EDT us Shai Huang MD LAB BLOOD ORDERABLES Final Resul t Performing Organization Address [facility] de Phone Number [facility] [address] [place] [phone] * (ABNORMAL) Iron And Total Iron Binding Capacity (05/09/2025 9:34 AM EDT) Iron 30(L) 45 - 160 mcg/dL [facility] Total Iron Binding Capacity 389 228 - 428 mcg/dL [facility] Percent Iron Saturation 8(L) 15 - 50 % [facility] Unsaturated Iron Binding 359 ug/dL [facility] Blood Venous blood specimen / Unknown 05/09/2025 9:34 AM EDT 05/09/2025 11:20 AM EDT us Shai Huang MD LAB BLOOD ORDERABLES Final Resul t Performing Organization Address City/[facility]/ZIP Co de Phone Number [facility] [address] [place] [address] [phone] * (ABNORMAL) Ferritin (05/09/2025 9:34 AM EDT) Ferritin 5(L) 20 - 250 ng/mL [facility] Blood Venous blood specimen / Unknown 05/09/2025 9:34 AM EDT 05/09/2025 11:20 AM EDT us Shai Huang MD LAB BLOOD ORDERABLES Final Resul t Performing Organization Address City/[facility]/ZIP Co de Phone Number [facility] [address] [place] [phone] * (ABNORMAL) Basic Metabolic Panel (05/09/2025 9:34 AM EDT) Pathologist [facility] Sodium 139 135 - 145 mmol/L [facility] Potassium 3.9 3.3 - 5.1 mmol/L [facility] Chloride 104 96 - 108 mmol/L [facility] Carbon Dioxide 28 22 - 29 mmol/L [facility] Anion Gap 11(L) 12 - 20 [facility] Urea Nitrogen (BUN) 13 9 - 16 mg/dL [facility] Creatinine, Serum 0.89 0.5 - 1.4 mg/dL [facility] Estimated Glomerular Filt Rate >60 [facility] Comment:Chronic Kidney Disea se: Estimated GFR < 60 mL/min/1.70s4Xmmoif Kidney Disease: Estimated GFR < 15 mL/min/1.73m2 Glucose 102 60 - 115 mg/dL [facility] Calcium 8.8 8.4 - 10.2 mg/dL [facility] Blood Venous blood specimen / Unknown 05/09/2025 9:34 AM EDT 05/09/2025 11:20 AM EDT us Shai Huang MD LAB BLOOD ORDERABLES Final Resul t Performing Organization Address City/[facility]/ZIP Co de Phone Number [facility] [address] [place] [address] [place] [phone] * (ABNORMAL) Lipid Panel, Standard (12/01/2024 9:23 AM EDT) Triglycerides 54 <150 mg/dL [facility] Comment:Desirable Triglyceri de: less than 150 mg/dLBorderline High Triglyceride 150-199 mg/dLHigh Triglyceride: 200-499 mg/dLVery High Triglyceride: greater than or equal to 5OO mg/dL Cholesterol 164 <200 mg/dL [facility] Comment:Desirable Cholestero l: less than 200 mg/dLBorderline High Cholesterol: 200-239 mg/dLHigh Cholesterol: greater than 239 mg/dL LDL Cholesterol Calculated 111(H) <100 mg/dL [facility] Comment:Desirable LDL: less than 100 mg/dLNear Optimal/Above Optimal LDL: 110- 129 mg/dLBorderline High LDL: 130-159 mg/dLHigh LDL: 160-189 mg/dLVery High LDL: greater than or equal to 190 mg/dL HDL Cholesterol 43 >40 mg/dL [facility] Comment:Desirable HDL: great er than 40 mg/dL Note: This HDL assay may give artificially low results in patients with liver disease. Blood Venous blood specimen / Unknown 12/01/2024 9:23 AM EDT 12/01/2024 11:30 AM EDT us Shai Huang MD LAB BLOOD ORDERABLES Final Resul t [facility] [address] [place] [phone] [phone] * Hm Colonoscopy (04/21/2024) Colonoscopy Normal Normal us Shai Huang MD HEALTH MAINTENANCE Final Result from Last 3 Months or Most Recently Relevant to Health Maintenance Insurance 2 Care Teams Generator Repairer Relationship Specialty Start Date End Date Name, MD Shai [address] [place] [address] PCP - General Family Medicine 02/13/17
--- OUTSIDE RECORDS SUMMARY | 2025-05-31 15:14 | XMS_ITS | Encounter Summary ---
Author Organization [employer] Address [address] [facility] [address] [place] [address] Care Team Providers Care Count Team Member Name Role Phone Name, Shai GOMEZ Primary Care Provider [phone] Thalia Boland PharmD Unavailable Reason for Visit * Reason Comments Med Refill Encounter Details Date Type Department Care Team ([facility] st Contact Info) Description 12/22/2024 Refill [facility] [address] [place], [place] [phone] Thalia Boland, PharmD [address] [place], [place] [phone] Primary hypertension Social History Tobacco Use Types [...] Description 06/13/2025 10:00 AM EDT Clinical Support [facility] [address] [place] [phone] 07/14/2025 9:00 AM EST Office Visit [facility] [address] [place] [phone] NameShai MD [address] [place] [phone] documented as of this encounter Goals Goal [...] documented as of this encounter Care Teams Count Team Member Relationship Specialty Start Date End Date Shai Huang MD [address] [place] [phone] PCP - General Family Medicine 02/13/17 Thalia Boland, [place] [address] [place] [phone] Pharmacist Internal Medicine 09/21/23 12/25/24 documented as of this encounter
--- OUTSIDE RECORDS SUMMARY | 2025-05-31 15:14 | XMS_ITS | Encounter Summary ---
Author Organization [employer] Address [address] [facility] [address] [place] [address] Care Team Providers Care Account Services Analyst Name Role Phone Name, Shai GOMEZ Primary Care Provider [phone] Thalia Boland PharmD Unavailable [phone] Encounter Details Date Type Department Care Team (Latest Contact Info) Description 11/16/2018 Abstract [facility] CONVERSIONS Dental, Provider, DDS Social History Tobacco [...] Description 06/13/2025 10:00 AM EDT Clinical Support [facility] [address] [place] [phone] 07/14/2025 9:00 AM EST Office Visit [facility] [address] [place] [phone] NameShai MD [address] [place] [phone] documented as of this encounter Visit Diagnoses Not on filedocumented in this encounter Care Teams Account Services Analyst Relationship Specialty Start Date End Date Shai Huang MD [address] [place] [phone] PCP - General Family Medicine 02/13/17 Thalia Boland, PharmD [address] [place] [phone] Pharmacist Internal Medicine 09/21/23 12/25/24 documented as of this encounter
== END 2025-05-31 14:28 | disposition home or self-care (01) ==
LOC: HO.HGS 14:02
PROVIDERS: PCP Internal Medicine Geriatric Medicine; Visit Provider Surgery
DX: K64.9 Unspecified hemorrhoids (principal)
CPT/HCPCS: 46600; 99203

== ENCOUNTER → 2025-05-31 14:02 | Outpatient (BNVA) | payer OTHER, SELFPAY | PROVIDERS: PCP Internal Medicine Geriatric Medicine; Visit Provider Surgery | DX: K64.9 Unspecified hemorrhoids (principal) | CPT/HCPCS: 46600; 99202 ==

== ENCOUNTER 2025-06-09 09:23 | Outpatient (REF) | payer OTHER, SELFPAY ==
[2025-06-09 12:11] LABS: Anion Gap 10 (12-20); Blood Urea Nitrogen 12 mg/dL (9-16); Calcium 9.4 mg/dL (8.4-10.2); Carbon Dioxide 29 mmol/L (22-29); Chloride 105 mmol/L (96-108); Estimated Glomerular Filt Rate > 60; Potassium 4.0 mmol/L (3.3-5.1); Sodium 140 mmol/L (135-145)
== END 2025-06-09 09:24 | disposition home or self-care (01) ==
LOC: HO.HHCL 09:23
PROVIDERS: PCP Internal Medicine Geriatric Medicine; Visit Provider Internal Medicine Geriatric Medicine
DX: I10 Essential (primary) hypertension (principal)
CPT/HCPCS: 36415; 80048

== ENCOUNTER 2025-07-14 10:19 | Outpatient (REF) | payer OTHER, SELFPAY ==
[2025-07-14 11:25] LABS: MANUAL DIFF FLAG NO
[2025-07-14 11:49] LABS: Hematocrit 43.6 % (42.0-52.0); Hemoglobin 14.0 g/dl (14.0-18.0); Imm Gran Abs Auto 0.02 X10*3/uL (0.00-0.03); Imm Gran Pct Auto 0.3 % (0.0-0.4); Lymphocytes Absolute Auto 1.6 X10*3/uL (1.2-4.9); Mean Corpuscular HGB Conc 32.1 g/dl (31.0-36.0); Mean Corpuscular Hemoglobin 26.5 pg (27.0-33.0); Mean Corpuscular Volume 82.4 fL (80.0-98.0); NRBC Abs Auto 0.000 X10*3/uL (0.0-0.012); NRBC Pct Auto 0.0 /100WBC (0.0-0.2); Platelet Count 306 X10*3/uL (160-400); Red Blood Count 5.29 X10*6/uL (4.60-5.80); White Blood Count 7.4 X10*3/uL (4.8-10.8)
[2025-07-14 13:52] LABS: Anion Gap 13 (12-20); Blood Urea Nitrogen 12 mg/dL (9-16); Calcium 9.5 mg/dL (8.4-10.2); Carbon Dioxide 25 mmol/L (22-29); Chloride 103 mmol/L (96-108); Estimated Glomerular Filt Rate > 60; Iron 95 mcg/dL (45-160); Percent Iron Saturation 22 % (15-50); Potassium 3.7 mmol/L (3.3-5.1); Sodium 137 mmol/L (135-145); Total Iron Binding Capacity 427 mcg/dL (228-428); Unsaturated Iron Binding 332 ug/dL
[2025-07-14 13:57] LABS: Ferritin 14 ng/mL (20-250)
== END 2025-07-14 10:20 | disposition home or self-care (01) ==
LOC: HO.HHCL 10:19
PROVIDERS: PCP Internal Medicine Geriatric Medicine; Visit Provider Internal Medicine Geriatric Medicine
DX: I10 Essential (primary) hypertension (principal); D50.8 Other iron deficiency anemias
CPT/HCPCS: 36415; 80048; 82728; 83540; 85025